=== PATIENT | female | born 1960 | race Caucasian/White ===

== ENCOUNTER → 2021-05-17 | Day surgery (SDC) | payer BC ==
[~2021-05-17] MED LIST: Propofol 200 MG/20 ML SDV ONE
[2021-05-17] MEDS: Lactated Ringers 1,000 ML IV SCH (08:59)
[2021-05-17 10:19] VITALS: BP 148/83; PULSE 84
--- NOTE | 2021-05-18 13:44 | OR ---
DATE OF OPERATION: 05/17/2021 PREOPERATIVE DIAGNOSIS: FAMILY HISTORY OF COLON CANCER. POSTOPERATIVE DIAGNOSIS: FAMILY HISTORY OF COLON CANCER. SURGEON: Lincoln Goyal MD PROCEDURE: FULL-LENGTH COLONOSCOPY. ANESTHESIA: MAC. COMPLICATIONS: None. SPECIMEN: None. FINDINGS: 1. Full-length colonoscopy. 2. Qureshi diverticulosis. RECOMMENDATIONS: Followup colonoscopy in 5 years. INDICATIONS: The patient has family history of colon CA. Dr. Iqbal sent her for a surveillance scope. DESCRIPTION OF PROCEDURE: The patient was prepped and draped, placed in the left lateral decubitus position. A lubricated Olympus colonoscope was inserted and with ease advanced to the cecum. Direct visualization of the ileocecal valve and appendiceal orifice was accomplished. The bowel prep was exceptional. Upon withdrawal of the scope throughout the entire length of the colon, I could find no polyps, masses, ulceration, or bleeding sites. No vascular abnormalities or signs of colitis. The patient does have scattered diverticula throughout the colon, most severe in the sigmoid as expected. The rectal vault itself was benign. Retroflexion showed only some nonthrombosed perianal hemorrhoid disease. Air was suctioned. The scope was removed without complication. MIRIAM/EMMA /[id number]
== END ==
LOC: CC.SDS 08:31
PROVIDERS: ATTEND Family Medicine
DX: K52.9 Noninfective gastroenteritis and colitis, unspecified (principal); F32.9 Major depressive disorder, single episode, unspecified; K57.30 Diverticulosis of large intestine without perforation or abscess without bleeding; E66.9 Obesity, unspecified; F41.9 Anxiety disorder, unspecified; K64.9 Unspecified hemorrhoids; I10 Essential (primary) hypertension; E78.00 Pure hypercholesterolemia, unspecified; M85.80 Other specified disorders of bone density and structure, unspecified site; Z80.0 Family history of malignant neoplasm of digestive organs; Z79.82 Long term (current) use of aspirin; Z79.899 Other long term (current) drug therapy; Z98.890 Other specified postprocedural states; Z68.29 Body mass index [BMI] 29.0-29.9, adult
CPT/HCPCS: J2704; J7120